=== PATIENT | male | born 1980 ===

== ENCOUNTER 2017-11-13 08:21 | Day surgery (SDC) | payer OTHER ==
[2017-11-13 09:11] VITALS: BMI 27.7
[2017-11-13] MEDS ORDERED: Ropivacaine 0.5% 30ML IV ONE (09:22)
[2017-11-13] MEDS ORDERED: Lidocaine 2% MPF (5 ml) Inj ONE ×2 (09:24→10:44)
[2017-11-13] MEDS ORDERED: Midazolam 2 MG/2 ML VIAL ONE (09:24)
[2017-11-13] MEDS ORDERED: Propofol 10 mg/ml Inj (20 ML) ONE (09:24)
[2017-11-13] MEDS ORDERED: Bupivacaine HCl 0.25% PF (30 ml) Inj ONE (10:44)
[2017-11-13] MEDS ORDERED: Lactated Ringer's 1,000 ML IV ONE ×3 (11:15→13:27)
[2017-11-13] MEDS ORDERED: Dexamethasone 4 mg/1 ml ONE (11:37)
[2017-11-13] MEDS ORDERED: Lidocaine 2% MPF (5 ml) Inj INJ ONE (12:55)
[2017-11-13] MEDS ORDERED: Bupivacaine HCl 0.25% PF (30 ml) Inj IJ ONE (12:55)
[2017-11-13] MEDS ORDERED: Lactated Ringer's 1,000 ML IV SCH (13:45)
--- NOTE | 2017-11-13 13:50 | PCM.ANESB8 ---
Axillary Block - Adductor Canal Block Date of Procedure: 11/13/17 Procedure Performed: Left Axillary Block of the Brachial Plexus for postop pain control - Procedure Axillary Block: The procedure was explained to the patient that it is for the post-operative pain management. Consent was obtained after a thorough discussion with the patient regarding the benefits and possible complications of local anesthetic block of the brachial plexus at the axillary area. Standard monitors were applied. Time-out was held with the nurse to confirm the correct surgical side and appropriate block. The procedure was performed at the end of surgery while the patient was under general anesthesia. After positioning, the patient's arm was abducted 90 degrees and forearm flexed 90 degrees on the same operative side. The axillary and upper arm was prepped with Chloraprep solution. The ultrasound transducer was then applied to the skin in the transverse plane and the brachial plexus was visualized surrounding the axillary artery. At this point, a #21 gauge Stimuplex 4-inch needle was inserted lateral to the ultrasound transducer and superior to the arm in-plane towards the axillary artery. Needle advancement was performed carefully under ultrasound visualization. Nerve stimulator was used and twitch of the affected extremity including fingers, hand, wrist and elbow was obtained at current of 0.3 MA. After repeated negative aspiration, 5 cc of 0.5% ropivacaine was injected and this was followed with 5 cc of 0.5% ropivacaine throughout the axillary fossa. Under ultrasound guidance the local anesthetics were observed surrounding the cords of the brachial plexus. The needle was removed intact and sterile dressing was applied. The patient had stable vital signs, was conscious and in no apparent distress. The patient tolerated the axillary block of the brachial plexus well with stable vital signs.
[2017-11-13] MEDS ORDERED: HYDROmorphone 1 mg/ml ISec ONE ×2 (14:00→14:46)
[2017-11-13] MEDS: HYDROmorphone 0.5 mg/0.5 ml ISec IVP PRN ×3 (14:03→14:38)
[2017-11-13] MEDS ORDERED: Oxycodone/Acetaminophen 5/325 mg Tab PO PRN (14:41)
[2017-11-13] MEDS ORDERED: Albuterol HFA 90 mcg/actuation (8 g) IH PRN (14:42)
[2017-11-13 16:21] VITALS: RESP 18
[2017-11-13] MEDS ORDERED: Oxycodone/Acetaminophen 5/325 mg Tab PO ONE (16:30)
[2017-11-13 17:24] VITALS: BP 130/78; PULSE 78; TEMP 98; O2SAT 99
--- NOTE | 2017-11-14 09:55 | RAD ---
Date of service: 11/13/2017 PROCEDURE: Fluoroscopy up to 1 hr. HISTORY: COMPARISON: None TECHNIQUE: Standard protocol for this study/examination. FINDINGS: Total fluoroscopic time (continuous mode) utilized during the procedure 86.4 (seconds). IMPRESSION: Total exam DLP: 0.97 (mGy)
--- NOTE | 2017-11-16 23:42 | OP ---
Copied To: Glynn Jean Baptiste MD Attending MD: Glynn Jean Baptiste MD PROCEDURE DATE: 11/13/2017 SURGEON: Glynn Jean Baptiste MD PREOPERATIVE DIAGNOSES: 1. Left wrist full-thickness scapholunate ligament tear. 2. Left wrist midcarpal instability. 3. Left wrist posterior interosseous nerve neuropathy. POSTOPERATIVE DIAGNOSES: 1. Left wrist full-thickness scapholunate ligament tear. 2. Left wrist midcarpal instability. 3. Left wrist posterior interosseous nerve neuropathy. PROCEDURES: 1. Scapholunate ligament reconstruction with extensor carpi radialis brevis tendon autograft utilizing Arthrex tenodesis screws, 16327. 2. Open reduction and internal fixation of midcarpal instability, 66647. 3. Posterior interosseous nerve neurectomy, 15776. ANESTHESIA: Regional and general anesthesia. BLOOD LOSS: Minimal. SPECIMENS: None. COMPLICATIONS: None. DISPOSITION: Stable to recovery room. INDICATIONS: This is a 37-year-old male who injured his left wrist at work, presented to my office with carpal instability and full-thickness tear of the scapholunate ligament. He has failed conservative therapy and is indicated for the above surgery. Risks and benefits of the procedure were explained. Risks include but not limited to bleeding, infection, tendon nerve, vascular injury, instability, chronic pain, potential need for additional surgery in the future. The patient understood the above risks and elected to proceed. Informed consent was obtained. DESCRIPTION OF PROCEDURE: The patient was brought to the operating room and placed supine on the operating room table. After adequate anesthesia was given and prophylactic antibiotics, a well-padded tourniquet was placed on the patient's left upper extremity. The entire extremity was then prepped and draped in a standard surgical fashion. The proposed incision was outlined. This was a dorsal midline longitudinal incision over the scapholunate interval. Time-out was performed. Tourniquet was inflated to 250 mmHg, and Esmarch was removed. Incision was made through the skin only. All superficial veins were cauterized. Dissection was carried down to identifying the retinaculum. The branches at the radial and ulnar nerves were clearly identified and protected throughout the remainder of the procedure. The interval between the third and fourth compartments of the retinaculum was incised. Next, the posterior interosseous nerve was identified at the radial fourth compartment, and neurectomy was performed. The capsule was incised longitudinally being careful to protect the DIC ligament. Also throughout the procedure, the soft tissue at the dorsal region of the scaphoid containing vascularity of the bone was preserved. Upon entering the joints, synovitis was present and synovectomy was performed. Immediately, a complete tear of the scapholunate interosseous ligament was identified. The ligament was frayed and nonviable for fragment repair. At this time, we elected to undergo with ligament reconstruction. First, a 2-mm tendon autograft was taken from the ECRB tendon, harvested using a tendon passer. About 10 cm of the tendon was harvested and prepared. The tendon was cleared off all remaining soft tissue and using #2 FiberWire stitch was placed at both ends in [place] fashion. Next, the scapholunate interval was inspected and showed to have significant midcarpal instability with hyperflexion of the scaphoid and extension of the lunate. There was also protrusion of the capitate. Open reduction was then performed with two 0.62 K-wires which were placed at the lunate and scaphoid and used a joystick to reduce the instability and the scapholunate interval. The K-wires were clamped together, debrided the scaphoid out of flexion and lunate out of extension thus closing the scapholunate interval and reducing the proximal carpal bones. Next, guidewires were used to insert into the proximal scaphoid segment, mid portions of the lunate and this will follow the scaphoid. This was confirmed on the fluoroscopy for good placement of the anchors. Next, a 3.5-mm drill was used to drill over the guidewires. After the navy fighter pilot holes were made, the guidewires were removed. The tendon graft was assembled with a fiber stitch which was used as an internal brace. Next, one limb end of the tendon graft was placed into the proximal pole of the scaphoid and locked in place with 3.5-mm SwiveLock. Next, the second limb of the tendon with fiber stitch was placed into the navy fighter pilot hole for the lunate and locked with another SwiveLock followed by final limb placement into the distal pole of the scaphoid navy fighter pilot hole and also secured with SwiveLock anchor. This concluded the construction of the scapholunate interval. The repair was and multiple stress tests and fluoroscopy. There was no gaping of the scapholunate interval. Fluoroscopic images confirmed good alignment of the carpal bones. Next, a Maki wire was placed across the scaphocapitate interval and the midcarpal joint reduced. The wound was then copiously irrigated and suctioned. Retinaculum was closed using 4-0 Vicryl sutures. Tourniquet was deflated. Hemostasis was obtained. Skin was closed with 4-0 nylon interrupted sutures. Sterile dressing consisting of Xeroform, 4x4's, fluffs, and a long arm plaster splint was placed. The patient tolerated the procedure well and was returned to the recovery room, awake, alert and excellent condition. Glynn Jean Baptiste MD
== END 2017-11-13 17:10 | disposition home or self-care (01) ==
LOC: H.OPSURG 08:21
PROVIDERS: ATTEND Orthopaedic Surgery
DX: S63.512A Sprain of carpal joint of left wrist, initial encounter (principal); J45.909 Unspecified asthma, uncomplicated; X58.XXXA Exposure to other specified factors, initial encounter; M25.332 Other instability, left wrist
CPT/HCPCS: 25320; 25670; 64772; C1713; J0690; J1100; J1170; J2001; J2250; J2405; J2704; J3010; J7030; J7120